=== PATIENT | female | born 1995 | race Caucasian/White ===

== ENCOUNTER 2018-01-18 16:17 | Emergency (ER) | payer BC ==
[~2018-01-18] VITALS: Ht 165.1 cm; Wt 54.7 kg
[2018-01-18 16:24] VITALS: TEMP 36.8; Ht 165.1 cm; Wt 54.7 kg
--- NOTE | 2018-01-18 16:52 | EMERGENCY ROOM VISIT NOTE ---
ED Visit Note First contact with patient: 16:29 CHIEF COMPLAINT: Left foot burn HISTORY OF PRESENT ILLNESS: This 22-year-old female patient presents to the emergency department approximately 3 days after they sustained a burn injury to the left foot. This occurred when she stepped on a curling iron. The patient states she immediately cleaned the wound with peroxide and applied bandages. She states it blistered, but after opening the blister yesterday, the patient reports increased pain. She states she has been able to ambulate, as the burn is located on her arch, but states today she was unable to apply any pressure. She has been using Neosporin ointment. The patient complains of swelling and pain over the arch of the left foot rated as 1/10. Pain is worse with movement and pressure. Sensation is still present. No other injury sustained. Tetanus shot is up to date. The patient denies any systemic symptoms including fever, chills, body aches, nausea, vomiting, and denies any purulent drainage. REVIEW OF SYSTEMS: A 6 system review of systems was completed with positives and pertinent negatives listed in the HPI. ALLERGIES: None MEDICATIONS: None PMH: None SOCIAL HISTORY: The patient is a [employer] student. She lives locally with her roommate. She denies drug and tobacco use. She admits to social alcohol use. PHYSICAL EXAM: Vital Signs reviewed, see Nurse's notes, vital signs stable. GENERAL: This is a 22-year-old white female, awake, alert, well appearing, no acute distress HEENT: Normocephalic, atraumatic. No carbonaceous sputum or singed nasal hair. Oropharynx without edema or erythema. NECK: No stridor MUSCULOSKELETAL: No gross deformity. SKIN: There is a partial thickness burn to the mid plantar aspect left foot and is <1% BSA. The burn is not circumferential. No signs of infection or foreign body. There is skin sloughing from the blister which was opened up. There is no purulent drainage. There is no bleeding. The burn does not extend into the subcutaneous or muscle tissue. NEURO: No sensory or motor deficits noted over all dermatomes and myotomes tested. EMERGENCY DEPARTMENT COURSE AND DECISION MAKING: I examined the patient. The patient presented with an isolated partial thickness thermal burn as above. No signs of airway involvement or smoke inhalation. There is no critical body part involvement or burn severity to warrant burn center referral. There is no evidence for infection or cellulitis/ abscess. ER Treatment: The wound was cleaned with sterile saline solution. The burn was dressed with bacitracin ointment, Xeroform, and a bulky gauze bandage. I recommended the patient use crutches to avoid weightbearing, as I feel that this will help with healing. The patient verbalized agreement and understanding. She states she does have crutches at home. I educated the patient regarding proper management of burn wounds. She was provided with dressing supplies for her next dressing and encouraged to follow-up in 1 day for reassessment. Discharge instructions reviewed. The patient was discharged home in stable condition. I attest that I have personally reviewed the patient's current medication list. Patient was found to have normal blood pressure on screening and does not require follow-up. Differential diagnosis includes partial thickness burn, full-thickness burn, cellulitis, abscess, bullae, assault, abuse, and others DIAGNOSIS: Left foot thermal burn The chart was completed utilizing [employer] voice recognition software. Grammatical errors, random word insertions, pronoun errors, and incomplete sentences are an occasional consequence of this system due to software limitations, ambient noise, and hardware issues. Any formal questions or concerns about the content, text, or information contained within the body of this dictation should be directly addressed to the provider for clarification. Vital Signs Date Time Temp Pulse Resp B/P (MAP) Pulse Ox O2 Delivery O2 Flow Rate FiO2 01/18/18 16:24 36.8 101 20 114/72 96 Room Air Departure Information Impression Primary Impression: Thermal burn Additional Impression: Burn of foot, left, second degree Dispostion Home / Self-Care Condition GOOD Referrals No Doctor, Assigned (PCP) Angelita Armstrong MD [facility] Patient Instructions ED Burn Thermal D 2nd Dressing, My [facility] Additional Instructions You have been treated in the Emergency Department today for a burn on your left foot. Use bacitracin ointment. This is an antibiotic ointment that will help to prevent the development of an infection at the site of your burn. After you have cleaned the burn site with soap and water and dried the area thoroughly, you should apply a layer of the ointment to the site of the burn with clean gauze or a clean tongue depressor. You should then apply the Xeroform bandaging material you were provided with. You should then apply a bulky gauze dressing over the site of the burn to keep it clean from contamination. Change the dressing once per day for the first 2-3 days. After this time you may begin leaving the injury open to air when not walking around or in an environment where it may get dirty. Use the crutches to avoid weightbearing for at least the next 3 days to help with healing. Look for signs of infection of the wound including: increased pain, swelling, foul discharge, streaking, or increased temperature. If any of these are noticed you should return to the Emergency Department for further assessment and treatment. For pain control, you can use the following [id number] medicines (if >12 yo): Ibuprofen(Motrin, Advil) may be used for fever or pain. Use 600mg every six hours as needed. Take with food. Avoid using more than 2400mg in a 24 hour period. Do not use 2400mg per day for more than three consecutive days without physician direction. Prolonged inappropriate use can lead to stomach upset or ulcers. (AND/OR) Acetaminophen(Tylenol) may be used for fever or pain. Use 1000mg every six hours as needed. Avoid using more than 3000mg in a 24 hour period. You should return to the Emergency Department or follow-up with [facility] in 1 day for a recheck of your burn. This is essential to ensure proper wound healing. You may consider follow-up with the local plastic surgeon. You have been provided with the contact information. Return to the emergency department if your symptoms worsen despite treatment course outlined above. Problem Qualifiers Additional Impression: Burn of foot, left, second degree Encounter type: initial encounter Qualified Codes: T25.222A - Burn of second degree of left foot, initial encounter
[2018-01-18] MEDS ORDERED: CLR10 PO (16:59)
[2018-01-18] MEDS ORDERED: DIPH25CA65 PO (16:59)
[2018-01-18 17:23] VITALS: BP 115/67; PULSE 76; O2SAT 95
== END 2018-01-18 17:26 | disposition home or self-care (01) ==
LOC: C.EDB 16:19 → C.EDD 17:26
DX: T25.222A Burn of second degree of left foot, initial encounter (principal); X19.XXXA Contact with other heat and hot substances, initial encounter; T31.0 Burns involving less than 10% of body surface